=== PATIENT | male | born 1950 | race Caucasian/White ===

== ENCOUNTER 2022-08-23 15:43 | Emergency (ER) | payer MEDICARE, MEDICAID ==
[~2022-08-23 15:43] MED LIST: Iopamidol 300 61% 100 ML VIAL FS ONE
[2022-08-23 16:46] LABS: Hemoglobin 13.4 g/dL (13.5-17.5); Mean Corpuscular HGB CONC 36.6 g/dL (32.0-36.0); Mean Corpuscular Volume 95.6 fl (81.2-95.1); Mean Platelet Volume 10.5 fl (7.4-10.4); Platelet Count 220 10x3/uL (150-450); RBC Distribution Width 11.9 % (11.5-14.5); Red Blood Cell (RBC) Count 3.83 10x6/uL (4.32-5.72); White Blood Cell (WBC) Count 5.7 10x3/uL (3.5-10.5)
[2022-08-23 16:47] LABS: MDiff Complete? YES
[2022-08-23 17:04] LABS: ALT (SGPT) 60 U/L (8-55); AST (SGOT) 51 U/L (5-34); Alkaline Phosphatase 39 U/L (40-110); Anion Gap 16 mmol/L (10-20); BUN (Urea Nitrogen) 18 mg/dL (8.4-25.7); Bilirubin, Total 1.1 mg/dL (0.2-1.2); Calc. Creatinine Clearance 0 mL/min (70-130); Calcium 9.7 mg/dL (7.8-10.44); Carbon Dioxide 25 mmol/L (23-31); Chloride 99 mmol/L (98-107); Estimated GFR 66; Globulin 2.7 g/dL (2.4-3.5); Glucose 119 mg/dL (83-110); Potassium 2.7 mmol/L (3.5-5.1); Protein, Total 6.7 g/dL (5.8-8.1); Sodium 137 mmol/L (136-145)
[2022-08-23 17:20] LABS: Magnesium 0.9 mg/dL (1.6-2.6)
[2022-08-23 17:22] LABS: Eosinophils 1 % (0-10); Lymphocytes 17 % (21-51); Monocytes 15 % (0-10); Neutrophil 64 % (42-75); Platelet Morphology Comment Appears Adequate; Reactive Lymphocytes 3 % (0-10)
[2022-08-23] MEDS ORDERED: Magnesium 2 GM/50 ML BAG (IN WATER) ONE (17:29)
[2022-08-23 17:40] LABS: Bilirubin Neg (Negative); Blood, Urine 10 (Negative); Clarity Clear (Clear); Glucose, Urine (Dipstick) Normal (Negative); Ketone, Urine Negative (Negative); Leukocyte Negative (Negative); Nitrite Negative (Negative); Protein, Urine (Dipstick) Negative (Neg-Trace); Specific Gravity, Urine 1.015 (1.005-1.030); Urobilinogen Normal mg/dL (Less than 2)
[2022-08-23 18:03] LABS: Bacteria/HPF Rare-Few HPF (None Seen); RBC/HPF 0-3 HPF (0-3); Renal Epithelial 0-3 HPF (None Seen); Squamous Epithelial 0-3 HPF (0-3); WBC/HPF 0-3 HPF (0-3)
== END 2022-08-23 19:05 | disposition home or self-care (01) ==
LOC: CSHERS 15:43
DX: R33.9 Retention of urine, unspecified (principal); E11.40 Type 2 diabetes mellitus with diabetic neuropathy, unspecified; K52.9 Noninfective gastroenteritis and colitis, unspecified; E83.42 Hypomagnesemia; Z87.891 Personal history of nicotine dependence
CPT/HCPCS: 36415; 51702; 74177; 80053; 81003; 81015; 83735; 85025; 96365; J3475; Q9967

== ENCOUNTER 2022-08-31 11:15 | Inpatient (IN) | payer OTHER ==
[2022-08-31 12:53] LABS: Hemoglobin 14.4 g/dL (13.5-17.5); Mean Corpuscular HGB CONC 36.5 g/dL (32.0-36.0); Mean Corpuscular Hemoglobin 34.5 pg (27.0-33.0); Mean Corpuscular Volume 94.7 fl (81.2-95.1); Mean Platelet Volume 10.2 fl (7.4-10.4); Platelet Count 239 10x3/uL (150-450); RBC Distribution Width 11.7 % (11.5-14.5); Red Blood Cell (RBC) Count 4.17 10x6/uL (4.32-5.72); White Blood Cell (WBC) Count 10.4 10x3/uL (3.5-10.5)
[2022-08-31 12:54] LABS: MDiff Complete? YES
[2022-08-31 13:02] LABS: ALT (SGPT) 59 U/L (8-55); AST (SGOT) 91 U/L (5-34); Albumin 3.9 g/dL (3.4-4.8); Alkaline Phosphatase 55 U/L (40-110); Anion Gap 17 mmol/L (10-20); BUN (Urea Nitrogen) 13 mg/dL (8.4-25.7); CK (CPK) 1625 U/L (30-200); Calc. Creatinine Clearance 0 mL/min (70-130); Calcium 9.6 mg/dL (7.8-10.44); Carbon Dioxide 25 mmol/L (23-31); Chloride 100 mmol/L (98-107); Estimated GFR 90; Globulin 2.8 g/dL (2.4-3.5); Glucose 94 mg/dL (83-110); Magnesium 1.2 mg/dL (1.6-2.6); Potassium 3.5 mmol/L (3.5-5.1); Protein, Total 6.7 g/dL (5.8-8.1); Sodium 138 mmol/L (136-145)
[2022-08-31 13:16] LABS: Band 1 % (5-11); Lymphocytes 7 % (21-51); Monocytes 14 % (0-10); Neutrophil 76 % (42-75); Reactive Lymphocytes 1 % (0-10)
[2022-08-31 13:18] LABS: Large Platelets SLIGHT; Platelet Morphology Comment Appears Adequate; Toxic Granulation SLIGHT
[2022-08-31 13:19] LABS: RBC Morphology Normal
[2022-08-31] MEDS ORDERED: Magnesium 2 GM/50 ML(in water) 2 GM in Premix Bag 1 BAG IVPB SCH ×2 (14:45→21:00)
[2022-08-31 15:20] LABS: Lactic Acid 1.9 mmol/L (0.5-2.2)
[2022-08-31] MEDS ORDERED: Acetaminophen 325 MG TAB PO PRN (15:25)
[2022-08-31] MEDS ORDERED: Ondansetron ODT 4 MG TAB PO PRN (15:25)
[2022-08-31] MEDS ORDERED: Acetaminophen 650 MG Suppository PR PRN (15:25)
[2022-08-31] MEDS ORDERED: Ondansetron PF 4 MG/2 ML Vial IVP PRN (15:25)
[2022-08-31 19:02] LABS: Bilirubin Neg (Negative); Blood, Urine 250 (Negative); Clarity Cloudy (Clear); Glucose, Urine (Dipstick) Normal (Negative); Ketone, Urine 5 mg/dL (Negative); Leukocyte 500 (Negative); Nitrite Negative (Negative); Protein, Urine (Dipstick) 100 mg/dl (Neg-Trace); Urobilinogen Normal mg/dL (Less than 2)
[2022-08-31 19:11] LABS: Bacteria/HPF 3+ HPF (None Seen); RBC/HPF 21-50 HPF (0-3); Squamous Epithelial None Seen HPF (0-3); WBC/HPF 21-50 HPF (0-3)
[2022-08-31] MEDS: Sodium Chloride 0.9% 1,000 ML IV SCH ×2 (20:01→23:53)
[2022-08-31] MEDS ORDERED: Tamsulosin HCl 0.4 MG CAP PO SCH (21:00)
[2022-08-31] MEDS ORDERED: Pregabalin 50 MG CAP PO SCH (21:15)
[2022-08-31 23:23] VITALS: BMI 31.6
[2022-09-01] MEDS ORDERED: traMADol HCl 50 MG TAB PO SCH (00:45)
[2022-09-01 04:32] LABS: Anion Gap 13 mmol/L (10-20); BUN (Urea Nitrogen) 14 mg/dL (8.4-25.7); Calc. Creatinine Clearance 129 mL/min (70-130); Calcium 8.2 mg/dL (7.8-10.44); Carbon Dioxide 24 mmol/L (23-31); Chloride 104 mmol/L (98-107); Estimated GFR 94; Glucose 100 mg/dL (83-110); Magnesium 1.7 mg/dL (1.6-2.6); Potassium 3.4 mmol/L (3.5-5.1); Sodium 138 mmol/L (136-145)
[2022-09-01 04:34] LABS: Hemoglobin 12.8 g/dL (13.5-17.5); Mean Corpuscular HGB CONC 36.6 g/dL (32.0-36.0); Mean Corpuscular Hemoglobin 34.8 pg (27.0-33.0); Mean Corpuscular Volume 95.1 fl (81.2-95.1); Mean Platelet Volume 10.2 fl (7.4-10.4); Platelet Count 198 10x3/uL (150-450); RBC Distribution Width 11.9 % (11.5-14.5); Red Blood Cell (RBC) Count 3.68 10x6/uL (4.32-5.72)
[2022-09-01 04:52] LABS: Thyroid Stimulating Hormone 2.1429 uIU/mL (0.35-4.94)
[2022-09-01 04:53] LABS: Syphilis Antibody Nonreactive (Nonreactive); Syphilis Antibody Index 0.05 S/CO (<1.00 Non-Reactive)
[2022-09-01 06:12] LABS: Band 4 % (5-11); Eosinophils 1 % (0-10); Lymphocytes 10 % (21-51); Monocytes 19 % (0-10); Neutrophil 65 % (42-75); Reactive Lymphocytes 1 % (0-10)
[2022-09-01 06:13] LABS: MDiff Complete? YES; Platelet Morphology Comment Appears Adequate
[2022-09-01] MEDS ORDERED: Potassium Chloride 20 MEQ TAB PO SCH (09:00)
[2022-09-01] MEDS: Sodium Chloride 0.9% 1,000 ML IV SCH ×2 (09:07→16:43)
[2022-09-01] MEDS ORDERED: Lactated Ringer's 1,000 ML IV SCH (14:00)
[2022-09-01 14:08] LABS: Digoxin 0.84 ng/mL (0.8-2.0)
[2022-09-01] MEDS ORDERED: Dexamethasone 4 MG in Sodium Chloride 0.9% 50 ML IVPB SCH (14:50)
[2022-09-01] MEDS ORDERED: Pregabalin 50 MG CAP PO SCH ×2 (16:00→21:00)
[2022-09-01] MEDS ORDERED: Morphine 4 MG/ML VIAL SLOW IVP SCH (16:00)
[2022-09-01] MEDS ORDERED: Dexamethasone 4 mg/ml Vial SLOW IVP SCH (16:00)
[2022-09-01] MEDS ORDERED: Fluticasone Propionate Nasal Spray 16 gm Bottle NASAL SCH (17:00)
[2022-09-01] MEDS ORDERED: Methocarbamol 500 MG TAB PO SCH ×3 (17:45→21:00)
[2022-09-01 20:26] VITALS: BP 178/83; TEMP 98.9
[2022-09-02] MEDS ORDERED: Apixaban 5 MG TAB PO SCH (09:00)
[2022-09-02] MEDS ORDERED: Fluticasone Propionate Nasal Spray 16 gm Bottle NASAL SCH (09:00)
[2022-09-02] MEDS ORDERED: Digoxin 0.125 MG TAB PO SCH (09:00)
== END 2022-09-01 20:00 | disposition short-term general hospital (02) | DRG 558 ==
LOC: CSHERS 11:15 → CSHTELE 19:04
PROVIDERS: ADMIT Internal Medicine; ATTEND Internal Medicine
DX: M62.82 Rhabdomyolysis (principal); I48.20 Chronic atrial fibrillation, unspecified; M50.00 Cervical disc disorder with myelopathy, unspecified cervical region; R29.898 Other symptoms and signs involving the musculoskeletal system; R27.0 Ataxia, unspecified; Z20.822 Contact with and (suspected) exposure to COVID-19; I10 Essential (primary) hypertension; N40.1 Benign prostatic hyperplasia with lower urinary tract symptoms; R33.8 Other retention of urine; M48.02 Spinal stenosis, cervical region; Z96.641 Presence of right artificial hip joint; E11.9 Type 2 diabetes mellitus without complications; Z79.899 Other long term (current) drug therapy; Z79.01 Long term (current) use of anticoagulants; Z98.49 Cataract extraction status, unspecified eye; Z87.891 Personal history of nicotine dependence
CPT/HCPCS: 36415; 70450; 70553; 72141; 80048; 80053; 80162; 81003; 81015; 82550; 82607; 83090; 83605; 83735; 84443; 85025; 86780; 87077; 87086; 87186; 94760; 96360; J1100; J2270; J3475; J7050; U0003; U0005

== ENCOUNTER 2022-11-04 10:11 | Outpatient (CLI) | payer OTHER, MEDICAID | END 2022-11-04 10:12 | disposition home or self-care (01) | LOC: CSHMRI 10:11 | PROVIDERS: ATTEND Surgery | DX: S14.109D Unspecified injury at unspecified level of cervical spinal cord, subsequent encounter (principal); Z98.890 Other specified postprocedural states; M47.812 Spondylosis without myelopathy or radiculopathy, cervical region | CPT/HCPCS: 72040; 72141 ==

== ENCOUNTER 2023-08-18 13:27 | Outpatient (CLI) | payer OTHER | END 2023-08-18 13:28 | disposition home or self-care (01) | LOC: CSHWCC 13:27 | PROVIDERS: ATTEND Physician Assistant | DX: T84.51XD Infection and inflammatory reaction due to internal right hip prosthesis, subsequent encounter (principal); S71.001D Unspecified open wound, right hip, subsequent encounter | CPT/HCPCS: 97597; 97598; G0463; 99213 ==

== ENCOUNTER 2023-09-15 11:28 | Outpatient (CLI) | payer OTHER, MEDICARE | END 2023-09-15 11:29 | disposition home or self-care (01) | LOC: CSHWCC 11:28 | PROVIDERS: ATTEND Physician Assistant | DX: S71.001D Unspecified open wound, right hip, subsequent encounter (principal); T84.51XD Infection and inflammatory reaction due to internal right hip prosthesis, subsequent encounter | CPT/HCPCS: 99213; G0463 ==

== ENCOUNTER 2023-09-22 09:09 | Outpatient (CLI) | payer OTHER, MEDICARE | END 2023-09-22 09:10 | disposition home or self-care (01) | LOC: CSHWCC 09:09 | PROVIDERS: ATTEND Physician Assistant | DX: S71.001A Unspecified open wound, right hip, initial encounter (principal); T84.51XA Infection and inflammatory reaction due to internal right hip prosthesis, initial encounter | CPT/HCPCS: 99214; G0463 ==